=== PATIENT | male | born 1955 | race African-American/Black ===

== ENCOUNTER 2016-11-15 11:50 | Inpatient (IN) | payer BC, OTHER ==
--- NOTE | ~2016-11-15 | DS ---
Discharge Summary [id number] [place] [address] NAME: ESPERANZA GIANG : 53 STATUS : DIS IN PAT#: [id number] AGE: 61 ADM/REG DATE : 11/15/16 MR#: [id number] REPORT SERV DATE: 11/19/16 DICTATED BY: AROLDO DAVIDSON DATE: 11/18/16 REPORT STATUS : Draft TRANSCRIBED BY: MODL DATE: 11/18/16 ADMISSION DATE: 11/15/2016 DISCHARGE DATE: 11/18/2016 DISCHARGE DIAGNOSES: 1. Sepsis due to community-acquired pneumonia. 2. Acute kidney injury superimposed on stage 3 chronic kidney disease. 3. Immunosuppression due to medications. 4. Rheumatoid arthritis and lupus. 5. Acute exacerbation of chronic obstructive pulmonary disease. 6. Mild thrombocytopenia. 7. Hypertension. 8. History of peptic ulcer disease, gastroesophageal reflux disease, irritable bowel syndrome. 9. Mild coronary artery disease. 10.History of restless legs syndrome. 11.Anemia of chronic disease. 12.Chronic right wrist pain. HISTORY: This patient has known rheumatoid arthritis and lupus followed by departmental buyer, Dr. Cyndi Zuluaga. He also has COPD followed by Pulmonary, Dr. Broderick. He was in his usual state of health until the evening of 11/14/2016 around 2130 hours, he had chills, then a new cough, temperature went up to 103 along with shortness of breath. The next day, he went to see [place] [id number], his fever was 102.3, and he is on immunosuppressive therapy with prednisone, Arava, and Plaquenil, so referred to us for direct inpatient admission. He states he is up-to-date on his flu vaccination and from Dr. Greenberg's office notes, it looks like it was given on 04/2016. He also states he is up-to- date on his Pneumovax, but he does not think he has had Prevnar. HOSPITAL COURSE: The patient was admitted to a telemetry unit. His procalcitonin was elevated at 0.51. [place] [id number] at his PCP's office and by discharge here 11.3. Two blood cultures, no growth. Influenza A and B swabs negative. Urine strep and Legionella antigens, no growth. Chest x-ray did not reveal any distinct infiltrate, but he did have rhonchi and wheezes and with his immunosuppression, he may not develop a significant infiltrate on chest x-ray, but clinically was felt to have pneumonia and sepsis criteria. He was given Rocephin and azithromycin. He also stated that he had been on erythromycin 250 mg t.i.d. since he had been discharged from this hospital in August 2016 because he states his bench chemist, Dr. Palencia, had told him to take it. I talked with Dr. Palencia on the phone. He indicated that at most they intended for the gentleman to have a short course of oral antibiotic for an asthmatic exacerbation and they did not wish for him to take it on an ongoing basis. I talked to the patient about that and stopped that erythromycin here. While he was in the hospital, we did give him a burst of steroid for stress scenario since he is on chronic steroids. He improved clinically, so we rapidly tapered this down. Discharge Summary [address] [place]. [address] NAME: ESPERANZA GIANG : 53 STATUS : DIS IN PAT#: [id number] AGE: 61 ADM/REG DATE : 11/15/16 MR#: [id number] REPORT SERV DATE: 11/19/16 DICTATED BY: AROLDO DAVIDSON DATE: 11/18/16 REPORT STATUS : Draft TRANSCRIBED BY: GWENDOLYN DATE: 11/18/16 He does have COPD. He does have some wheezes. He states it is common for him to have mild dyspnea. He states his shortness of breath now is no worse than it was before. He had no more fever, no more chills. His energy is good. He is eating well. He is ambulating well. He did have mild acute kidney injury. On presentation, his creatinine was 2.29 and went up to 2.43. With hydration, his renal studies on 11/18/2016 showed a creatinine of 1.43, which is much closer to his baseline. He also had some transient thrombocytopenia with his time here in the hospital with his lowest platelet count of 146,000; by discharge 189,000. The patient has a history of irritable bowel and reported to us and to Pharmacy that he was taking Librax twice a day scheduled. Here, we just ordered it p.r.n. and he did not take it and did not have abdominal pain. DISCHARGE MEDICATIONS: Include: Uroxatral 10 mg at bedtime; allopurinol 300 mg daily; Norvasc 5 mg daily; aspirin 81 mg daily; Lipitor 40 mg at bedtime; azithromycin 500 mg p.o. b.i.d., last dose will be on 11/19/2016; Coreg 12.5 mg b.i.d.; vitamin D 2000 units twice a day; Bentyl 20 mg t.i.d.; Zantac 300 mg at bedtime; EZFE 200 mg daily; gabapentin 800 mg t.i.d. (chronic medicine for him); [place] 5/325 q.i.d. scheduled for chronic pain (he has been on this for some time); Plaquenil 200 mg b.i.d.; Imdur 30 mg daily; Pataday 1 drop both eyes daily; levothyroxine 88 mcg daily (TSH normal at 0.89); Claritin 10 mg daily; Linzess 290 mcg p.o. daily; Reglan 10 mg daily (another chronic medicine); Prilosec 40 mg daily; KCl 20 mEq daily (while here, his potassium level ranged between 3.7 and 4.4); Carafate 1 g b.i.d.; Spiriva Respimat, he reports he was taking a puff twice a day, we have instructed him to use this only once a day; Apresoline 50 mg t.i.d.; Tylenol 650 q.6 hours p.r.n. minor pain; Librax b.i.d. p.r.n. abdominal cramps; albuterol handheld or nebulized q.i.d. p.r.n. shortness of breath; Nasonex 2 sprays in each nostril daily; Breo Ellipta 200/25 a puff daily; Arava 20 mg, he will restart on 11/25/2016; Travatan Z 0.004% one drop to both eyes at bedtime; prednisone 10 mg, he will take two p.o. daily for three days, then one p.o. daily for three days, then he will restart his usual 5 mg daily. He is to follow up with his PCP, Dr. Angeline Greenberg, in the office next week where she can not only follow up his pneumonia and his kidney function, but also address whether he has already received the Prevnar 13 vaccination. I spent 43 minutes today with the patient and with his discharge plan. RSSavanna/GWENDOLYN Aroldo Davidson M.D. / [id number] CC: Discharge Summary [address] [address] NAME: ESPERANZA GIANG : 53 STATUS : DIS IN PAT#: [id number] AGE: 61 ADM/REG DATE : 11/15/16 MR#: [id number] REPORT SERV DATE: 11/19/16 DICTATED BY: AROLDO DAVIDSON DATE: 11/18/16 REPORT STATUS : Draft TRANSCRIBED BY: MODBetsy DATE: 11/18/16 Humza Beasley M.D. Humza Cortez Jr., M.D. Stuart G Ginther, M.D. Michael T Czarnecki, M.D.
--- NOTE | ~2016-11-15 | HP ---
History And Physical [address] [place]. [address] NAME: ESPERANZA GIANG : 53 STATUS : ADM IN [facility]#: [id number] AGE: 61 ADM/REG DATE : 11/15/16 MR#: [id number] REPORT SERV DATE: 11/15/16 DICTATED BY: AROLDO DAVIDSON DATE: 11/15/16 REPORT STATUS : Draft TRANSCRIBED BY: MODL DATE: 11/15/16 DATE OF ADMISSION: 11/15/2016 IDENTIFYING DATA: A 61-year-old white male whose PCP is Dr. Angeline Greenberg, manager heart failure is Dr. Cyndi Zuluaga, pulmonary Dr. Broderick, Cardiology Dr. Bernabe Palencia, planning intern Dr. Ponce Conrad. CHIEF COMPLAINT: Fever and shortness of breath. HISTORY OF PRESENT ILLNESS: This history of present illness is obtained by talking directly with the patient and his and son at the bedside. I also spoke on the phone with PCP Dr. Angeline Greenberg and I reviewed [place] and Treater. The patient states, he was in his usual state of health until the evening of 11/14/2016 around 2130 hours, when he developed chills, after he took a shower. He also developed a new cough. He was not producing any sputum. His temp was up to 103. He felt short of breath. He did not take anything for his fever. He went to see his PCP, Dr. Greenberg in the office today and there was noted to have a white blood count elevation of 17,000 with a fever 102.3. We were asked to see him and admit him directly to the hospital. The patient is on immunosuppressive therapy. The patient had his flu vaccination. He recalls it and it appears that it was done with Dr. Angeline Greenberg in 04/2016. He states, he has had his pneumonia vaccinations with Pneumovax, but he has not had Prevnar. REVIEW OF SYSTEMS: On review of systems, he has had some transient left lower quadrant pain last night. He had some left foot edema two days ago without any injury, had no pain. He had some headache this morning, it has gone. His states, he snores. His balance has been off since he had a neck surgery in the past. He denies chest pain, nausea, vomiting, diarrhea, sore throat, bright red blood per rectum, melena, dysuria, urinary hesitancy, rash, tick bites, weight changes, or falls. PAST MEDICAL HISTORY: As far as allergies, the only one that he admits is oxycodone which makes him itchy. He denies any history of diabetes, myocardial infarction, stroke, seizure, liver disease, renal stones, cancer or sleep apnea. He has had history of rheumatoid arthritis and reportedly lupus and prior gout. He also has a history of COPD. He will not wear home oxygen. He has had previous peptic ulcer years ago along with a history of reflux and irritable bowel. He has stage 3-4 chronic kidney disease. He has hypertension. He had had previous hyperthyroidism, treated with resection, it was a partial resection. He had some chest pain in 09/12/2016 of this year. He had a heart catheterization with Dr. Palencia showing left ventricular hypertrophy, normal left ventricular ejection fraction of 60%, mild coronary artery disease, recommended for medical therapy. He had anemia of chronic disease and restless legs syndrome. History And Physical [address] [address] NAME: ESPERANZA GIANG : 53 STATUS : ADM IN [facility]#: [id number] AGE: 61 ADM/REG DATE : 11/15/16 MR#: [id number] REPORT SERV DATE: 11/15/16 DICTATED BY: AROLDO DAVIDSON DATE: 11/15/16 REPORT STATUS : Draft TRANSCRIBED BY: GWENDOLYN DATE: 11/15/16 HOME MEDICATIONS: Albuterol hand-held and nebulized p.r.n., Uroxatral 10 mg at bedtime, Zyloprim 300 mg daily, Norvasc 5 mg daily, aspirin 81 mg daily, Lipitor 40 mg at bedtime, Coreg 12.5 mg twice a day, Librax one capsule twice a day, vitamin D 2000 units twice a day, Bentyl 20 mg t.i.d., erythromycin 250 mg t.i.d., iron polysaccharide 200 mg daily, Breo Ellipta 200/25 one puff daily, gabapentin 800 mg t.i.d., Apresoline 50 mg t.i.d., [place] 5/325 q.i.d. scheduled, Plaquenil 200 mg twice a day, Imdur 30 mg daily, Arava 20 mg daily, levothyroxine 88 mcg daily, Linzess 290 mcg daily, Claritin 10 mg daily, Reglan 10 mg daily, Nasonex two sprays each nostril daily, Pataday eyedrops daily, omeprazole 40 mg daily, KCl 20 mEq daily, prednisone 5 mg daily, Zantac 300 mg at bedtime, Carafate 1 g twice a day, Spiriva Respimat one capsule inhaled twice per day, Travatan Z 0.004 one drop both eyes at bedtime. PAST SURGICAL HISTORY: He has had previous partial thyroidectomy, cervical spine surgery twice. He has had right hand surgery ten times. He had a ganglion cyst, reportedly that he could never get rid of. He has had left elbow surgery. He has had a cholecystectomy, appendectomy. SOCIAL HISTORY: He is reportedly on disability and has not worked since his right hand surgery years ago. He quit smoking cigars fourteen years ago. He smoked one to one and half packs per day of cigars. Denies significant alcohol use. He used to be involved in construction work. and son are at the bedside. He walks at home with a cane and a walker. FAMILY HISTORY: Mother reportedly had diabetes. Father, he does not know what health problems he had. Siblings with diabetes mellitus type 2. DIAGNOSTIC DATA: All that is available right now is the [place] [address]. PHYSICAL EXAMINATION: VITAL SIGNS: Temp right now 100.5, pulse 95, respirations 20, blood pressure 153/87, O2 saturation is 91% on room air. GENERAL: Well-developed male, who appears to be chilling, but otherwise no acute distress. HEENT: Head is atraumatic. Pupils are equal, round, and reactive to light. Extraocular motions are intact. No scleral icterus noted. Ears, externally unremarkable with no inflammatory changes. Normal hearing bilaterally. Nose, noninflamed externally. Septum midline. Nares patent. Mouth is dry. Good gag. No redness of the throat, gums, or lips. NECK: Supple. No lymph node or thyroid enlargement. The carotids have good pulses. No bruits. LUNGS: Clear. Good air flow. No wheezes. No rhonchi. Normal respiratory effort. HEART: Regular rate and rhythm without murmur, gallop, click, or rub. ABDOMEN: Bowel sounds positive. Soft, nondistended, nontender. No masses. No organomegaly. No bruits. EXTREMITIES: Warm, good pulses. No clubbing, no cyanosis, no edema. No actively inflamed skin or joints noted at this time. No swelling in that left ankle. NEUROLOGIC: Alert, oriented, cooperative with grossly normal motor and cranial nerves II through XII except he cannot actively flex or extend the fingers of his right hand. He History And Physical [address] [address] NAME: ESPERANZA GIANG : 53 STATUS : ADM IN PAT#: [id number] AGE: 61 ADM/REG DATE : 11/15/16 MR#: [id number] REPORT SERV DATE: 11/15/16 DICTATED BY: AROLDO DAVIDSON DATE: 11/15/16 REPORT STATUS : Draft TRANSCRIBED BY: GWENDOLYN DATE: 11/15/16 states, he has to manually use his other hand to do that for years. He wears a brace on his right wrist. No Babinski. No clonus noted. ASSESSMENT: 1. Sudden onset fevers of 102 to103 with a new cough, new shortness of breath, and report of wheezes at his PCPs office. This most likely represents sepsis with community- acquired pneumonia. 2. Leukocytosis of 17,000. 3. Immunosuppressed by his medications, steroids, and Arava. 4. See past medical history. PLAN: The patient is going to be admitted to a telemetry unit. We will get a chest x-ray, get blood cultures. We will check chemistries and CBC. We will get procalcitonin. We will check influenza A and B as well as urine antigens. We will put him on Rocephin and azithromycin. We will give him stress steroids. We will plan for future Prevnar vaccination series. We will hold his Arava for right now. We will monitor his oxygen status. His and son are updated at the bedside with him. BONNY/GWENDOLYN Aroldo Davidson M.D. / [id number] CC: Humza Beasley M.D. Michael T Czarnecki, M.D. Natalie Braggs, M.D. Stuart G Ginther, M.D.
[~2016-11-15 11:50] MED LIST: ACCUNEB INH; ADVAIR250 INH; ALBUTEROL; ALLEGRA180 PO; AMB10 PO; AMITIZA8 MCG PO; APRES50 PO; ARAVA20 PO; ASAB PO; BENTYL20 PO; BREO ELLIPTA 21 EACH INH; CLARIT10 PO; COREG12 PO; DCN100 PO; DIL4TAB PO; DIOV160 PO; DIOV80 PO; DIOVAN HC1 PO; EZFE 200200 MG PO; FLOVENT DISK50 MCG INH; FLUCON150 PO; IMDUR30 PO; JALYN PO; KDUR20 PO; KLONO1 PO; KLONO5 PO; KLOR-CON M2020 MEQ PO; L10 PO; L20 PO; LEVOTHROID75 MCG PO; LEVOTHYROXIN88 MCG PO; LEVSINTAB PO; LIBRAX PO; LINZESS 290 M290 MCG PO; LIPITOR40 PO; LORTAB 5 PO; MSCONT15 PO; NASONEX NAS; NEUR600 PO; NEUR800 PO; NORCO1 TA1 PO; NORCO1 TAB PO; NORV5 PO; NYS500UDL PO; P5 PO; PATADAY OPH; PLAQ200B PO; PRILOSEC40 MG PO; PROAIR HFA INH; RANITIDINE300 MG PO; REG PO; SPIRIVA INH; SPIRIVA RESPIMAT INH; SUCR PO; SYSTANE OPH; TRAVATAN OPH; TRICOR48 PO; UROXATRAL PO; V5 PO; VENTOLIN HFA INH; VICODINTAB PO; VITAMIN D31000 UNIT PO; Z100 PO; Z300 PO
[2016-11-15] MEDS ORDERED: UROXATRAL PO (12:27)
[2016-11-15] MEDS ORDERED: NORV5 PO (12:27)
[2016-11-15] MEDS ORDERED: NASONEX NAS (12:27)
[2016-11-15] MEDS ORDERED: NEUR800 PO (12:27)
[2016-11-15] MEDS ORDERED: IMDUR30 PO (12:28)
[2016-11-15] MEDS ORDERED: ERY-TAB250 MG PO (12:28)
[2016-11-15] MEDS ORDERED: PROAIR HFA INH (12:28)
[2016-11-15] MEDS ORDERED: BREO ELLIPTA 21 EACH INH (12:29)
[2016-11-15] MEDS ORDERED: ALBUTEROL5 INH (12:29)
[2016-11-15] MEDS ORDERED: LIBRAX PO (12:29)
[2016-11-15] MEDS ORDERED: ASAB PO (12:29)
[2016-11-15] MEDS ORDERED: VITAMIN D2000 UNIT PO (12:30)
[2016-11-15] MEDS ORDERED: CLARIT10 PO (12:30)
[2016-11-15] MEDS ORDERED: EZFE 200200 MG PO (12:30)
[2016-11-15] MEDS ORDERED: APRES50 PO (12:31)
[2016-11-15] MEDS ORDERED: ARAVA20 PO (12:31)
[2016-11-15] MEDS ORDERED: LIPITOR40 PO (12:31)
[2016-11-15] MEDS ORDERED: SUCR PO (12:31)
[2016-11-15] MEDS ORDERED: COREG12 PO (12:31)
[2016-11-15] MEDS ORDERED: PATADAY OPH (12:32)
[2016-11-15] MEDS ORDERED: KLOR-CON M2020 MEQ PO (12:32)
[2016-11-15] MEDS ORDERED: LEVOTHYROXIN88 MCG PO (12:32)
[2016-11-15] MEDS ORDERED: NORCO1 TA1 PO (12:32)
[2016-11-15] MEDS ORDERED: SPIRIVA RESPIMAT PO (12:33)
[2016-11-15] MEDS ORDERED: TRAVATAN Z 0.004% OPH (12:34)
[2016-11-15] MEDS ORDERED: LINZESS 290 M290 MCG PO (12:34)
[2016-11-15] MEDS ORDERED: REG PO (12:34)
[2016-11-15] MEDS ORDERED: BENTYL20 PO (12:34)
[2016-11-15] MEDS ORDERED: Z300 PO (12:35)
[2016-11-15] MEDS ORDERED: PLAQ200B PO (12:35)
[2016-11-15] MEDS ORDERED: P5 PO (12:35)
[2016-11-15] MEDS ORDERED: RANITIDINE300 MG PO (12:35)
[2016-11-15] MEDS ORDERED: PRILOSEC40 MG PO (12:35)
[2016-11-15 13:44] LABS: HEMATOCRIT 34.1 % (40.0-51.0); HEMOGLOBIN 11.5 g/dL (13.6-17.8); MEAN CORPUS HGB CONC 33.7 g/dL (32.0-36.0); MEAN CORPUSCULAR HEMOGLOB 29.5 pg (26.0-34.0); MEAN CORPUSCULAR VOLUME 87.4 fL (80-100); MEAN PLATELET VOLUME 11.2 fL (9.2-13.0); PLATELET COUNT 160 10/3/uL (150-400); WHITE BLOOD CELLS 14.5 10/3/uL (4.5-10.5)
[2016-11-15 13:47] LABS: MANUAL DIFF YES %
[2016-11-15 14:02] LABS: BAND NEUTROPHILS 1 %; LYMPHOCYTES 22 %; LYMPHOCYTES ABSOLUTE (CALC) 3.19 10/3/uL (0.67-4.30); MONOCYTES 12 %; MONOCYTES ABSOLUTE (CALC) 1.74 10/3/uL (0.21-1.20); NEUTROPHILS ABSOLUTE (CALC) 9.57 10/3/uL (2.02-8.40); PLATELET ESTIMATE ADQ (ADEQUATE); RBC MORPHOLOGY NORM (NORMAL); SEGMENTED NEUTROPHIL (0) 65 %; TOTAL NUCLEATED CELLS 100
[2016-11-15 14:07] LABS: ALBUMIN 3.9 G/DL (3.5-5.0); CALCIUM, SERUM 8.5 MG/DL (8.5-10.4); CHLORIDE, SERUM 103 MMOL/L (96-112); CO2 (CARBON DIOXIDE) 24 MMOL/L (24-34); CREATININE 2.43 MG/DL (0.70-1.30); GFR AFRICAN AMERICAN 32 ML/MIN (>=60); GFR NON AFRICAN AMERICAN 27 ML/MIN (>=60); GLUCOSE, SERUM 111 MG/DL (60-99); SGOT(AST) 21 U/L (5-40); SGPT(ALT) 18 U/L (5-65); SODIUM, SERUM 138 MMOL/L (135-148); TOTAL PROTEIN 7.3 G/DL (6.0-8.5)
[2016-11-15 14:09] LABS: A/G RATIO 1.1 (0.7-1.9); ALKALINE PHOSPHATASE 88 U/L (45-117); BUN (BLOOD UREA NITROGEN) 25 MG/DL (6-23); GLOBULIN 3.4 G/DL (2.5-4.1); TOTAL BILIRUBIN 0.9 MG/DL (0-1.2)
[2016-11-15 15:14] LABS: PROCALCITONIN 0.51 ng/mL (<0.5)
[2016-11-15 16:37] LABS: A/G RATIO 1.6 (0.7-1.9); ALBUMIN 4.2 G/DL (3.5-5.0); ALKALINE PHOSPHATASE 88 U/L (45-117); BUN (BLOOD UREA NITROGEN) 26 MG/DL (6-23); CALCIUM, SERUM 8.5 MG/DL (8.5-10.4); CHLORIDE, SERUM 103 MMOL/L (96-112); CO2 (CARBON DIOXIDE) 26 MMOL/L (24-34); CREATININE 2.29 MG/DL (0.70-1.30); GFR AFRICAN AMERICAN 34 ML/MIN (>=60); GFR NON AFRICAN AMERICAN 29 ML/MIN (>=60); POTASSIUM, SERUM 4.4 MMOL/L (3.5-5.3); SGOT(AST) 25 U/L (5-40); SGPT(ALT) 19 U/L (5-65); SODIUM, SERUM 140 MMOL/L (135-148); TOTAL BILIRUBIN 0.8 MG/DL (0-1.2); TOTAL PROTEIN 6.8 G/DL (6.0-8.5)
[2016-11-15 16:44] LABS: GLOBULIN 2.6 G/DL (2.5-4.1); GLUCOSE, SERUM 52 MG/DL (60-99)
[2016-11-15 17:12] LABS: COMPLEMENT C3 126 MG/DL (75-161); COMPLEMENT C4 18.5 MG/DL (16-47)
[2016-11-15 19:15] LABS: INFLUENZA A SCREEN NEGATIVE (NEGATIVE); INFLUENZA B SCREEN NEGATIVE (NEGATIVE)
[2016-11-16 07:31] LABS: BASOPHILS 0.2 %; BASOPHILS ABSOLUTE 0.02 10/3/uL (0.0-0.16); EOSINOPHILS 0.3 %; EOSINOPHILS ABSOLUTE 0.03 10/3/uL (0.0-0.53); HEMATOCRIT 31.3 % (40.0-51.0); HEMOGLOBIN 10.7 g/dL (13.6-17.8); IMMATURE GRANULOCYTES 0.3 %; IMMATURE GRANULOCYTES ABSOLUTE 0.03 10/3/uL (0.0-0.11); LYMPHOCYTES 22.9 %; LYMPHOCYTES ABSOLUTE 2.29 10/3/uL (0.67-4.30); MANUAL DIFF NO %; MEAN CORPUS HGB CONC 34.2 g/dL (32.0-36.0); MEAN CORPUSCULAR HEMOGLOB 29.6 pg (26.0-34.0); MEAN CORPUSCULAR VOLUME 86.5 fL (80-100); MEAN PLATELET VOLUME 11.1 fL (9.2-13.0); NEUTROPHILS 64.3 %; NEUTROPHILS ABSOLUTE 6.42 10/3/uL (2.02-8.40); PLATELET COUNT 146 10/3/uL (150-400); RED CELL COUNT 3.62 10/6/uL (4.7-6.1)
[2016-11-16 07:52] LABS: BUN (BLOOD UREA NITROGEN) 27 MG/DL (6-23); CALCIUM, SERUM 8.5 MG/DL (8.5-10.4); CHLORIDE, SERUM 108 MMOL/L (96-112); CO2 (CARBON DIOXIDE) 23 MMOL/L (24-34); CREATININE 1.89 MG/DL (0.70-1.30); GFR AFRICAN AMERICAN 43 ML/MIN (>=60); GFR NON AFRICAN AMERICAN 37 ML/MIN (>=60); GLUCOSE, SERUM 93 MG/DL (60-99); SODIUM, SERUM 143 MMOL/L (135-148)
[2016-11-16 18:36] LABS: ASCORBIC ACID (UR NOT ORDER) NEG (NEG); BILIRUBIN, URINE NEGATIVE (NEG); KETONE, URINE NEGATIVE (NEG); LEUKOCYTE ESTERASE(NOT OR NEG (NEG); WBC (NOT ORDERED) (RFLEX) < 1 (0-5)
[2016-11-17 03:46] LABS: HEMATOCRIT 29.2 % (40.0-51.0); HEMOGLOBIN 10.2 g/dL (13.6-17.8); MEAN CORPUS HGB CONC 34.9 g/dL (32.0-36.0); MEAN CORPUSCULAR HEMOGLOB 29.7 pg (26.0-34.0); MEAN CORPUSCULAR VOLUME 85.1 fL (80-100); MEAN PLATELET VOLUME 10.9 fL (9.2-13.0); PLATELET COUNT 148 10/3/uL (150-400); RBC DISTRIBUTION WIDTH 12.5 % (12.0-16.0); RED CELL COUNT 3.43 10/6/uL (4.7-6.1); WHITE BLOOD CELLS 10.2 10/3/uL (4.5-10.5)
[2016-11-17 03:48] LABS: MANUAL DIFF YES %
[2016-11-17 04:03] LABS: BUN (BLOOD UREA NITROGEN) 24 MG/DL (6-23); CALCIUM, SERUM 8.3 MG/DL (8.5-10.4); CHLORIDE, SERUM 109 MMOL/L (96-112); CO2 (CARBON DIOXIDE) 25 MMOL/L (24-34); CREATININE 1.65 MG/DL (0.70-1.30); GFR AFRICAN AMERICAN 51 ML/MIN (>=60); GFR NON AFRICAN AMERICAN 44 ML/MIN (>=60); GLUCOSE, SERUM 92 MG/DL (60-99); POTASSIUM, SERUM 3.7 MMOL/L (3.5-5.3); SODIUM, SERUM 142 MMOL/L (135-148)
[2016-11-17 04:08] LABS: BAND NEUTROPHILS 2 %; EOSINOPHILS 1 %; LYMPHOCYTES 22 %; LYMPHOCYTES ABSOLUTE (CALC) 2.24 10/3/uL (0.67-4.30); MONOCYTES 9 %; MONOCYTES ABSOLUTE (CALC) 0.92 10/3/uL (0.21-1.20); NEUTROPHILS ABSOLUTE (CALC) 6.94 10/3/uL (2.02-8.40); PLATELET ESTIMATE ADQ (ADEQUATE); RBC MORPHOLOGY NORM (NORMAL); SEGMENTED NEUTROPHIL (0) 66 %; TOTAL NUCLEATED CELLS 100
[2016-11-18 07:35] LABS: CALCIUM, SERUM 8.2 MG/DL (8.5-10.4); CHLORIDE, SERUM 108 MMOL/L (96-112); CO2 (CARBON DIOXIDE) 25 MMOL/L (24-34); CREATININE 1.43 MG/DL (0.70-1.30); GFR AFRICAN AMERICAN 60 ML/MIN (>=60); GFR NON AFRICAN AMERICAN 52 ML/MIN (>=60); GLUCOSE, SERUM 76 MG/DL (60-99); POTASSIUM, SERUM 3.7 MMOL/L (3.5-5.3); SODIUM, SERUM 143 MMOL/L (135-148)
[2016-11-18 07:36] LABS: BUN (BLOOD UREA NITROGEN) 18 MG/DL (6-23)
[2016-11-18 08:46] LABS: BASOPHILS 0.2 %; BASOPHILS ABSOLUTE 0.02 10/3/uL (0.0-0.16); EOSINOPHILS 0.2 %; EOSINOPHILS ABSOLUTE 0.02 10/3/uL (0.0-0.53); HEMATOCRIT 31.5 % (40.0-51.0); HEMOGLOBIN 10.8 g/dL (13.6-17.8); IMMATURE GRANULOCYTES 0.3 %; IMMATURE GRANULOCYTES ABSOLUTE 0.03 10/3/uL (0.0-0.11); LYMPHOCYTES 18.2 %; LYMPHOCYTES ABSOLUTE 2.06 10/3/uL (0.67-4.30); MEAN CORPUS HGB CONC 34.3 g/dL (32.0-36.0); MEAN CORPUSCULAR VOLUME 84.5 fL (80-100); MEAN PLATELET VOLUME 11.1 fL (9.2-13.0); MONOCYTES 8.7 %; MONOCYTES ABSOLUTE 0.99 10/3/uL (0.21-1.20); NEUTROPHILS 72.4 %; PLATELET COUNT 189 10/3/uL (150-400); RBC DISTRIBUTION WIDTH 12.7 % (12.0-16.0); RED CELL COUNT 3.73 10/6/uL (4.7-6.1); WHITE BLOOD CELLS 11.3 10/3/uL (4.5-10.5)
[2016-11-18 08:47] LABS: MANUAL DIFF NO %
[2016-11-18] MEDS ORDERED: ZITHROMAX500 MG PO (13:16)
[2016-11-18] MEDS ORDERED: STERAPRED DS10 MG (13:17)
== END 2016-11-18 14:00 | disposition home or self-care (01) | DRG 871 ==
LOC: 2SO 11:50
PROVIDERS: Hospitalist; Internal Medicine
DX: A41.9 Sepsis, unspecified organism (principal); J18.9 Pneumonia, unspecified organism; N18.4 Chronic kidney disease, stage 4 (severe); D69.6 Thrombocytopenia, unspecified; N17.9 Acute kidney failure, unspecified; M32.9 Systemic lupus erythematosus, unspecified; J44.0 Chronic obstructive pulmonary disease with (acute) lower respiratory infection; M06.9 Rheumatoid arthritis, unspecified; M10.9 Gout, unspecified; J44.9 Chronic obstructive pulmonary disease, unspecified; K21.9 Gastro-esophageal reflux disease without esophagitis; K58.9 Irritable bowel syndrome, unspecified; I25.10 Atherosclerotic heart disease of native coronary artery without angina pectoris; D63.8 Anemia in other chronic diseases classified elsewhere; I12.9 Hypertensive chronic kidney disease with stage 1 through stage 4 chronic kidney disease, or unspecified chronic kidney disease; G25.81 Restless legs syndrome; M25.531 Pain in right wrist; Z83.3 Family history of diabetes mellitus; Z87.11 Personal history of peptic ulcer disease; Z87.891 Personal history of nicotine dependence; Z98.890 Other specified postprocedural states
CPT/HCPCS: 36415; 71010; 71020; 80048; 80053; 81001; 82570; 83605; 83735; 83880; 84145; 84300; 84443; 85025; 85027; 86160; 87040; 87449; 87804; 89190; 93005; 94640; A9270-GY; J0456; J1720